=== PATIENT | female | born 1985 | race Caucasian/White ===

== ENCOUNTER → 2016-06-24 20:00 | Outpatient (CLI) | payer MEDICAID ==
[~2016-06-24 20:00] MED LIST: BENADRYL50 MG; PRENATAL COMPLE1 TAB PO; PROZAC40 MG PO; REMERON15 MG PO; THORAZINE10 MG; THORAZINE50 MG PO
== END | disposition home or self-care (01) ==
LOC: D.LDO 20:00
DX: O36.8130 Decreased fetal movements, third trimester, not applicable or unspecified (principal); Z3A.28 28 weeks gestation of pregnancy

== ENCOUNTER → 2016-07-02 08:14 | Outpatient (CLI) | payer MEDICAID ==
[2016-07-02 09:45] LABS: UDS - AMPHET POSITIVE QUAL (NEGATIVE); UDS - BARB NEGATIVE QUAL (NEGATIVE); UDS - BENZO POSITIVE QUAL (NEGATIVE); UDS - COCAINE POSITIVE QUAL (NEGATIVE); UDS - METH NEGATIVE QUAL (NEGATIVE); UDS - OPIATE NEGATIVE QUAL (NEGATIVE); UDS - PCP NEGATIVE QUAL (NEGATIVE); UDS - THC NEGATIVE QUAL (NEGATIVE)
[2016-07-02 09:51] LABS: APPEARANCE CLOUDY (CLEAR); BACTERIA MODERATE /hpf (NONE SEEN); BILIRUBIN NEGATIVE (NEGATIVE); COLOR YELLOW (YELLOW); EPITHELIAL CELLS OCC /hpf (0-5); GLUCOSE NEGATIVE (NEGATIVE); KETONE LARGE mg/dL (NEGATIVE); LEUKOCYTE ESTERASE NEGATIVE (NEGATIVE); MUCUS <1+ /lpf (NONE SEEN); NITRITE NEGATIVE (NEGATIVE); PROTEIN NEGATIVE (NEGATIVE); RED CELLS - URINE RARE /hpf (0-5); UROBILINOGEN NORMAL (NORMAL); WHITE CELLS - URINE NSEEN /hpf (0-5)
[2016-07-02 09:52] LABS: AMORPHOUS SEDIMENT >1+ /lpf (NONE SEEN)
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
[2016-07-06 07:10] LABS: UDSC - AMPHET Positive (Cutoff=1000); UDSC - BARB Negative ng/mL (Cutoff=300); UDSC - BENZO Positive (Cutoff=300); UDSC - COC Positive (Cutoff=300); UDSC - METH Negative ng/mL (Cutoff=300); UDSC - OPIATES Negative ng/mL (Cutoff=300); UDSC - PCP Negative ng/mL (Cutoff=25); UDSC - PROPOXY Negative ng/mL (Cutoff=300); UDSC - THC Negative ng/mL (Cutoff=50)
== END | disposition home or self-care (01) ==
LOC: D.LDO 08:14
PROVIDERS: Specialist
DX: O26.899 Other specified pregnancy related conditions, unspecified trimester (principal); R07.9 Chest pain, unspecified; R00.0 Tachycardia, unspecified